=== PATIENT | male | born 1960 | race Caucasian/White ===

== ENCOUNTER 2016-09-20 11:50 | Outpatient (CLI) | payer OTHER ==
[~2016-09-20] VITALS: Ht 195.6 cm; Wt 98.9 kg
[2016-09-20] MEDS ORDERED: SERT100T PO (12:52)
[2016-09-20] MEDS ORDERED: MELO15TA39 PO (12:52)
[2016-09-20] MEDS ORDERED: CYCL10TA9 PO (12:52)
[2016-09-20] MEDS ORDERED: TRAM50TA2 PO (12:52)
[2016-09-20] MEDS ORDERED: APIX5TAB PO (12:52)
[2016-09-20] MEDS ORDERED: PRAV80TA2 PO (12:52)
[2016-09-20] MEDS ORDERED: SOTA80TA PO (12:52)
== END 2016-09-20 12:53 ==
LOC: PREOP 11:50
PROVIDERS: ATTEND Surgery
DX: Z01.818 Encounter for other preprocedural examination (principal); K29.50 Unspecified chronic gastritis without bleeding

== ENCOUNTER 2016-09-23 11:53 | Day surgery (SDC) | payer OTHER ==
[~2016-09-23] VITALS: Ht 195.6 cm; Wt 98.9 kg
[~2016-09-23 11:53] MED LIST: APIX5TAB PO; CYCL10TA9 PO; MELO15TA39 PO; PRAV80TA2 PO; SERT100T PO; SOTA80TA PO; TRAM50TA2 PO
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
--- OUTSIDE RECORDS SUMMARY | 2016-09-23 11:57 | XMS REPORT | Continuity of Care Document ---
Author Author [facility] Organization [facility] Address Unknown Phone Unavailable Support Name Relationship Address Phone KATE AGOSTO DO Caregiver [address] [place] [address] Insurance Providers Payer Name Policy Number Subscriber Name Relationship [facility] [id number] Pedrito Rosenthal 19 Self / Same As Patient Advance Directives Directive Response Recorded Date/Time Advance Directives Yes 09/20/16 11:44am Health Care Power of Telephone Lineman Y Liv 09/20/16 11:44am Organ Donor No [...] 5.00 inches 09/20/2016 11:42am Height (Calculated Centimeters) 195.738777 cm 09/20/2016 11:42am Weight (Pounds) 218 pounds 09/20/2016 11:42am Weight (Ounces) 0.0 oz 09/20/2016 11:42am Weight (Calculated Grams) 14612.14 gm 09/20/2016 11:42am Weight (Calculated Kilograms) 98.009662 kilograms 09/20/2016 11:42am Calculated BMI 25.9 09/20/2016 11:42am Results No known relevant diagnostic tests, laboratory data and/or discharge summary. Procedures No known history of procedures. Encounters Encounter Location Arrival/Admit Date Discharge/Depart Date Attending Provider Departed Clinic [facility] 09/20/16 11:50am 09/20/16 12: 53pm KATE AGOSTO DO
[2016-09-23 12:10] VITALS: BP 107/84
[2016-09-23] MEDS ORDERED: NS IV 1000 ML 1,000 ML IV STA (12:11)
[2016-09-23] MEDS ORDERED: HURRICAINE EXT TUBE (BENZOCAINE) XX PRN (12:15)
[2016-09-23] MEDS ORDERED: LIDOCAINE JELLY 2% (XYLOCAINE) 5 ML TUBE MM PRN (12:15)
[2016-09-23] MEDS ORDERED: NS IV 1000 ML 1,000 ML ONE (12:15)
[2016-09-23] MEDS ORDERED: AMLO10TA4 PO (12:54)
[2016-09-23] MEDS ORDERED: OMEP20CA12 PO (12:54)
[2016-09-23] MEDS ORDERED: SOTA80TA22 PO (12:54)
[2016-09-23] MEDS ORDERED: MELO15TA14 PO (12:54)
--- NOTE | 2016-09-23 13:12 | Progress Note-Pre Operative ---
Pre-Operative Progress Note H&P Reviewed The H&P was reviewed, patient examined and no changes noted. Date H&P Reviewed: Sep 23, 2016 Time H&P Reviewed: 13:10 Pre-Operative Diagnosis: Gastritis KATE AGOSTO DO Sep 23, 2016 13:12
[2016-09-23] MEDS ORDERED: MIDAZOLAM 2 MG/2 ML (VERSED) VIAL ONE (13:13)
[2016-09-23] MEDS ORDERED: PROPOFOL INJECTION 50 ML IV ONE (13:13)
[2016-09-23] MEDS ORDERED: HURRICAINE EXT TUBE (BENZOCAINE) ONE (13:18)
--- NOTE | 2016-09-23 13:35 | Progress Note-Post Operative ---
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
--- NOTE | 2016-09-23 13:37 | Endoscopy Discharge Instruct ---
Findings Findings 1.: Gastritis Discharge Instructions - Activity: You might feel a little sleepy until tomorrow. This is due to the medicine you received to relax you. Until tomorrow, you should: NOT drive a car, operate machinery or power tools. NOT drink any alcoholic beverages. NOT make any important decisions or sign importortant papers. Do not return to work until tomorrow, unless otherwise instructed. Resume previous activities tomorrow. Diet: Start by taking liquids. If you tolerate liquids, advance to solid food. Instructions: 1.: EGD in 1 year Notify Physician - If you experience excessive bleeding, unusual abdominal pain, fever, or chest pain, contact your doctor immediately. Phone number [phone] Follow-Up: Follow Up: Weeks (follow up in one week) - I have received and understand the above instructions and will call my doctor if I have any further questions. Patient Signature Date Nurse Signature Other (Relationship) KATE AGOSTO DO Sep 23, 2016 13:37
[2016-09-23 14:00] VITALS: BP 112/75
[2016-09-23 14:30] VITALS: BP 123/79
[2016-09-23 14:35] VITALS: BP 123/79
--- NOTE | 2016-09-24 11:13 | PROCEDURE REPORT ---
PROCEDURE PHYSICIAN: KATE STAFFORD DATE OF PROCEDURE: 09/23/2016 PREOPERATIVE DIAGNOSIS: Gastritis. POSTOPERATIVE DIAGNOSIS: Gastritis pending pathology. PROCEDURE: EGD with biopsy. SURGEON: Dr. Stafford LIFE ENRICHMENT ASSISTANT: None. ANESTHESIA: IV sedation by NITRO MAN. SPECIMENS: Antral biopsy. BLOOD LOSS: Scant. FLUIDS: Minimal. POSTOPERATIVE: Stable. INDICATIONS FOR THE PROCEDURE: The patient is a 56-year-old male who has had a history of gastritis, needed EGD to work this up. Thought he had a hiatal hernia as well. FINDINGS: The patient had some minimal gastritis, I did not really see a hiatal hernia. No other pathology seen. PROCEDURE NOTE: After informed consent was obtained, the patient brought to the endoscopy suite, placed in the bed in the left lateral decubitus position. He was administered IV sedation by NITRO MAN, then monitored his vitals. The gastroscope was inserted through the mouth down the oropharynx into the esophagus and into the stomach. Some minimal erythema of the antrum. Then pushed into the duodenum took a picture of the duodenum. Did not see any inflammation. Elected to do a biopsy of the antrum and then retroflexed the scope. Did not really see a hiatal hernia. Then slowly withdrew scope up into the esophagus. The GE junction looked good. Again did not really see a hiatal hernia, no change in the Z line and then slowly withdrew the scope up the esophagus and out the mouth. The patient tolerated the procedure. Transferred to the recovery room in stable condition. Job ID: [id number] Dictated Date: 09/23/2016 13:39:18 Soil Science Teacher Date: 09/24/2016 11:05:33 / tana
== END 2016-09-23 14:35 | disposition home or self-care (01) ==
LOC: ENDO 11:53
PROVIDERS: ATTEND Surgery
DX: K29.70 Gastritis, unspecified, without bleeding (principal); K31.9 Disease of stomach and duodenum, unspecified
CPT/HCPCS: 88305